=== PATIENT | male | born 1945 ===

== ENCOUNTER 2017-09-25 07:42 | Emergency (ER) | payer OTHER ==
[~2017-09-25] VITALS: Ht 167.6 cm; Wt 74.4 kg
[~2017-09-25 07:42] MED LIST: LISINOPRIL5 MG; SYNTHROID50 MCG
[2017-09-25] MEDS ORDERED: TUSSI PRES-B L120 M1 PO (10:55)
[2017-09-25] MEDS ORDERED: AMOX1TAB5 PO (10:55)
== END 2017-09-25 11:57 | disposition home or self-care (01) ==
LOC: ER 07:42
DX: B34.9 Viral infection, unspecified (principal); J11.1 Influenza due to unidentified influenza virus with other respiratory manifestations

== ENCOUNTER 2019-04-22 10:35 | Outpatient (CLI) | payer OTHER ==
[~2019-04-22 10:35] MED LIST changes: +AMOX1TAB5 PO; +TUSSI PRES-B L120 M1 PO
== END 2019-04-22 11:12 | disposition home or self-care (01) ==
LOC: RAD 10:35
DX: M77.31 Calcaneal spur, right foot (principal); M77.32 Calcaneal spur, left foot

== ENCOUNTER → 2020-10-10 10:06 | Outpatient (CLI) | payer OTHER ==
[~2020-10-10 10:06] MED LIST changes: +ATARAX25 MG PO; +MOMETASONE FURO15 G2 TOP
== END | disposition home or self-care (01) ==
LOC: LAB 10:06
PROVIDERS: ATTEND Urology
DX: R97.20 Elevated prostate specific antigen [PSA] (principal)

== ENCOUNTER 2020-10-14 10:22 | Emergency (ER) | payer OTHER ==
[~2020-10-14] VITALS: Ht 160 cm; Wt 78.9 kg
[~2020-10-14 10:22] MED LIST changes: -ATARAX25 MG PO; -MOMETASONE FURO15 G2 TOP
[2020-10-14] MEDS ORDERED: ATARAX25 MG PO (16:22)
[2020-10-14] MEDS ORDERED: MOMETASONE FURO15 G2 TOP (16:22)
[2020-10-14] MEDS ORDERED: AMOX1TAB5 PO (16:22)
== END 2020-10-14 16:38 | disposition home or self-care (01) ==
LOC: ER 10:22
DX: R21 Rash and other nonspecific skin eruption (principal)

== ENCOUNTER 2020-11-11 07:56 | Outpatient (CLI) | payer OTHER ==
[~2020-11-11 07:56] MED LIST changes: +ATARAX25 MG PO; +MOMETASONE FURO15 G2 TOP
== END 2020-11-11 08:07 | disposition home or self-care (01) ==
LOC: SONOGRAMA 07:56
PROVIDERS: ATTEND Urology
DX: C61 Malignant neoplasm of prostate (principal); D29.1 Benign neoplasm of prostate; R97.20 Elevated prostate specific antigen [PSA]

== ENCOUNTER 2020-11-18 10:39 | Outpatient (CLI) | payer OTHER | END 2020-11-18 10:46 | disposition home or self-care (01) | LOC: TOM 10:39 | PROVIDERS: ATTEND Urology | DX: N20.0 Calculus of kidney (principal); C61 Malignant neoplasm of prostate ==

== ENCOUNTER 2020-11-22 09:16 | Outpatient (CLI) | payer OTHER | END 2020-11-22 09:28 | disposition home or self-care (01) | LOC: NUCLEAR 09:16 | PROVIDERS: ATTEND Urology | DX: C61 Malignant neoplasm of prostate (principal) | CPT/HCPCS: 78803; A9503 ==

== ENCOUNTER 2020-12-21 06:57 | Outpatient (CLI) | payer OTHER | END 2020-12-21 06:59 | disposition home or self-care (01) | LOC: LAB 06:57 | PROVIDERS: ATTEND Urology | DX: I10 Essential (primary) hypertension (principal); I11.9 Hypertensive heart disease without heart failure; C61 Malignant neoplasm of prostate ==

== ENCOUNTER → 2020-12-28 09:28 | Outpatient (CLI) | payer OTHER | END | disposition home or self-care (01) | LOC: LAB 09:28 | PROVIDERS: ATTEND Internal Medicine | DX: I10 Essential (primary) hypertension (principal); M54.5 Low back pain; Z01.810 Encounter for preprocedural cardiovascular examination; E03.8 Other specified hypothyroidism; N20.0 Calculus of kidney; D68.8 Other specified coagulation defects ==

== ENCOUNTER 2021-01-05 09:15 | Inpatient (IN) | payer OTHER ==
[~2021-01-05] VITALS: Ht 160 cm; Wt 76.2 kg
[~2021-01-05 09:15] MED LIST changes: -SYNTHROID50 MCG; +SYNTHROID50 MCG PO
[2021-01-05] MEDS ORDERED: ALTACE10 MG PO (09:57)
[2021-01-05] MEDS ORDERED: CRESTOR20 MG PO (09:57)
[2021-01-11] MEDS ORDERED: LUMIGAN2.5 M1 (10:09)
[2021-01-11] MEDS ORDERED: COMBIGAN EYE DRO5 ML (10:09)
== END 2021-01-13 08:53 | disposition home or self-care (01) | DRG 708 ==
LOC: O/R 01-11 05:10 → SURH 01-11 09:15 → SURG 01-11 16:47
PROVIDERS: ADMIT Urology; ATTEND Urology
PROC: 0VT00ZZ Resection of Prostate, Open Approach (ICD-10-PCS; principal; 2021-01-11 10:30)
DX: C61 Malignant neoplasm of prostate (principal)

== ENCOUNTER 2021-01-20 17:40 | Emergency (ER) | payer OTHER ==
[~2021-01-20] VITALS: Ht 160 cm; Wt 76.2 kg
[~2021-01-20 17:40] MED LIST changes: +ALTACE10 MG PO; +COMBIGAN EYE DRO5 ML; +CRESTOR20 MG PO; +LUMIGAN2.5 M1
[2021-01-20] MEDS ORDERED: NAPROXEN250 MG PO (22:57)
[2021-01-20] MEDS ORDERED: SKELAXIN800 MG PO (22:57)
[2021-01-20] MEDS ORDERED: CIPRO500 MG PO (23:24)
[2021-01-20] MEDS ORDERED: ULTRACET PO (23:24)
== END 2021-01-20 23:37 | disposition home or self-care (01) ==
LOC: ER 17:40
DX: R31.0 Gross hematuria (principal); N30.81 Other cystitis with hematuria

== ENCOUNTER → 2021-01-30 08:34 | Outpatient (CLI) | payer OTHER ==
[~2021-01-30 08:34] MED LIST changes: +CIPRO500 MG PO; +NAPROXEN250 MG PO; +SKELAXIN800 MG PO; +ULTRACET PO
== END | disposition home or self-care (01) ==
LOC: LAB 08:34
PROVIDERS: ATTEND Urology
DX: C61 Malignant neoplasm of prostate (principal); K62.89 Other specified diseases of anus and rectum

== ENCOUNTER 2021-05-03 08:52 | Outpatient (CLI) | payer OTHER | END 2021-05-03 09:01 | disposition home or self-care (01) | LOC: LAB 08:52 | PROVIDERS: ATTEND Urology | DX: C61 Malignant neoplasm of prostate (principal) ==

== ENCOUNTER 2024-12-25 10:13 | Outpatient (CLI) | payer OTHER | END 2024-12-25 10:15 | disposition home or self-care (01) | LOC: SONOGRAMA 10:13 | PROVIDERS: ATTEND Urology | DX: R31.0 Gross hematuria (principal) ==

== ENCOUNTER 2025-03-17 15:32 | Outpatient (CLI) | payer OTHER | END 2025-03-17 15:43 | disposition home or self-care (01) | LOC: TOM 15:32 | PROVIDERS: ATTEND General Practice | DX: R31.9 Hematuria, unspecified (principal) ==